=== PATIENT | female | born 1955 | race Caucasian/White ===

== ENCOUNTER 2019-05-20 12:04 | Inpatient (IN) ==
[2019-05-20] MEDS ORDERED: SODIUM CHLORIDE 0.9% 1,000 ML IV STA (14:42)
[2019-05-20 15:31] LABS: Basophils % 0.4 % (0.0-0.8); Eosinophils % 0.2 % (0.00-10.9); Hematocrit 42.3 VOL% (35.7-47.0); Hemoglobin 13.7 GM/DL (12.0-16.0); Immature Granulocytes % 0.4 %; Immature Granulocytes Absolute 0.04 #; Lymphocytes # 1.5 10*3/uL (1.4-4.0); Lymphocytes % 13.7 % (21.3-54.2); Mean Corpuscular HGB Conc 32.4 GM/DL (32-36); Mean Corpuscular Volume 91.2 FL (87-102); Mean Platelet Volume 9.9 FL (9.6-12.0); Monocytes % 6.7 % (1.7-12.7); Neutrophils % 78.6 % (38.7-73.9); Platelet Count 202 T/CUMM (130-400); Red Blood Count 4.64 MC/CUMM (3.8-5.5); Red Cell Distribution Width 14.7 % (9.3-17.3)
[2019-05-20 15:47] LABS: Barbiturates Screen,Urine Negative (Negative); Benzodiazepines Screen,Urine Positive (Negative); Cannabinoid Screen,Urine Negative (Negative); Opiate Screen,Urine Positive (Negative)
[2019-05-20 15:50] LABS: Albumin 3.9 G/DL (3.4-5.0); Bilirubin,Total 0.4 MG/DL (0.2-1.0); Calcium 9.7 MG/DL (8.5-10.1); Osmolality,Calculated 272.8 MOS/KG (273-304); Total Protein 7.9 G/DL (6.4-8.3)
[2019-05-20] MEDS ORDERED: POTASSIUM BICARB EFFERVESCENT 25 MEQ TABLET PO ONE (16:06)
[2019-05-20 16:12] LABS: Apearance,Urine CLOUDY (Clear); Bacteria,Urine Moderate /HPF (Few); Bilirubin,Urine Negative (Negative); Blood, Urine Negative (Negative); Glucose,Urine (UA) Negative (Negative); Hyaline Casts,Urine 139 /LPF (0-3); Ketones,Urine Negative (Negative); Mucus,Urine Many /LPF (Occasional); Nitrite,Urine Negative (Negative); Protein,Urine Negative; RBC,Urine 12 /HPF (0-4); Squamous Epithelial Cell,Urine Moderate /HPF (0-10); Urine Color Amber (Yellow); Urine Specific Gravity 1.017 (1.001-1.035); WBC,Urine 9 /HPF (0-6)
[2019-05-20] MEDS ORDERED: ONDANSETRON 4 MG/2 ML VIAL IV PRN (16:48)
[2019-05-20] MEDS: PROMETHAZINE 25 MG TABLET PO PRN (18:45)
[2019-05-20] MEDS: ENOXAPARIN 40 MG/0.4 ML SYRINGE SUBCUT SCH (19:42)
[2019-05-20] MEDS: cefTRIAXone 1,000 MG in SYRINGE 1 EACH IV SCH (19:43)
[2019-05-20] MEDS: SODIUM CHLORIDE 0.9% 1,000 ML IV SCH (20:27)
[2019-05-20] MEDS: MORPHINE ER 15 MG TABLET PO SCH (21:35)
[2019-05-20] MEDS: tiZANidine 4 MG TABLET PO SCH (21:35)
[2019-05-20] MEDS: traMADol 50 MG TABLET PO SCH (21:35)
[2019-05-20] MEDS: ZALEPLON 5 MG CAPSULE PO SCH (21:35)
[2019-05-21] MEDS ORDERED: NEBIVOLOL 5 MG TABLET PO SCH (09:00)
[2019-05-21] MEDS: LEVOTHYROXINE 88 MCG TABLET PO SCH (09:22)
[2019-05-21] MEDS: traMADol 50 MG TABLET PO SCH ×3 (09:23→21:29)
[2019-05-21] MEDS: tiZANidine 4 MG TABLET PO SCH ×2 (09:23→21:29)
[2019-05-21] MEDS: FLUoxetine 20 MG CAPSULE PO SCH (09:24)
[2019-05-21] MEDS: PANTOPRAZOLE 40 MG TABLET PO SCH (09:24)
[2019-05-21] MEDS: ATORVASTATIN 20 MG TABLET PO SCH (09:24)
[2019-05-21] MEDS: hydroCHLOROthiazide 25 MG TABLET PO SCH (09:25)
[2019-05-21 10:27] LABS: Albumin 2.9 G/DL (3.4-5.0); Bilirubin,Total 0.4 MG/DL (0.2-1.0); Calcium 8.2 MG/DL (8.5-10.1)
[2019-05-21] MEDS: MORPHINE ER 15 MG TABLET PO SCH ×2 (11:21→21:29)
[2019-05-21] MEDS ORDERED: NEBIVOLOL 5 MG TABLET PO ONE (13:40)
[2019-05-21] MEDS ORDERED: MAGNESIUM SULF RIDER 4 GM in PREMIX 1 EACH IV PRN (15:42)
[2019-05-21] MEDS: MAGNESIUM SULF RIDER 2 GM in PREMIX 1 EACH IV PRN (15:57)
[2019-05-21] MEDS: ENOXAPARIN 40 MG/0.4 ML SYRINGE SUBCUT SCH (16:00)
[2019-05-21] MEDS: cefTRIAXone 1,000 MG in SYRINGE 1 EACH IV SCH (18:35)
[2019-05-21] MEDS: SODIUM CHLORIDE 0.9% 1,000 ML IV SCH ×2 (19:20)
[2019-05-21] MEDS: ACETAMINOPHEN 325 MG TABLET PO PRN (19:44)
[2019-05-21] MEDS: diphenhydrAMINE CAP 25 MG CAPSULE PO PRN (19:44)
[2019-05-21] MEDS: ZALEPLON 5 MG CAPSULE PO SCH (21:29)
[2019-05-22] MEDS: LEVOTHYROXINE 88 MCG TABLET PO SCH (06:13)
[2019-05-22] MEDS ORDERED: NEBIVOLOL 5 MG TABLET PO SCH (09:00)
[2019-05-22 09:33] LABS: Basophils % 0.7 % (0.0-0.8); Eosinophils # 0.1 10*3/uL (0.0-0.87); Eosinophils % 2.6 % (0.00-10.9); Hematocrit 34.4 VOL% (35.7-47.0); Immature Granulocytes % 0.2 %; Immature Granulocytes Absolute 0.01 #; Lymphocytes # 1.4 10*3/uL (1.4-4.0); Lymphocytes % 31.8 % (21.3-54.2); Mean Corpuscular HGB Conc 31.1 GM/DL (32-36); Mean Corpuscular Volume 95.8 FL (87-102); Monocytes % 9.2 % (1.7-12.7); Neutrophils % 55.5 % (38.7-73.9); Red Cell Distribution Width 15.3 % (9.3-17.3)
[2019-05-22 09:35] LABS: White Blood Count 4.3 T/CUMM (4-12)
[2019-05-22 09:36] LABS: Hemoglobin 10.7 GM/DL (12.0-16.0); Platelet Count 148 T/CUMM (130-400); Red Blood Count 3.59 MC/CUMM (3.8-5.5)
[2019-05-22 09:44] LABS: Calcium 8.4 MG/DL (8.5-10.1); Osmolality,Calculated 274.4 MOS/KG (273-304)
[2019-05-22] MEDS: PROMETHAZINE 25 MG TABLET PO PRN (09:45)
[2019-05-22] MEDS: PANTOPRAZOLE 40 MG TABLET PO SCH (09:45)
[2019-05-22] MEDS: traMADol 50 MG TABLET PO SCH ×3 (09:45→20:22)
[2019-05-22] MEDS: ATORVASTATIN 20 MG TABLET PO SCH (09:45)
[2019-05-22] MEDS: diphenhydrAMINE CAP 25 MG CAPSULE PO PRN ×2 (09:45→20:22)
[2019-05-22] MEDS: FLUoxetine 20 MG CAPSULE PO SCH (09:46)
[2019-05-22] MEDS: hydroCHLOROthiazide 25 MG TABLET PO SCH (09:46)
[2019-05-22] MEDS: tiZANidine 4 MG TABLET PO SCH ×2 (09:46→20:26)
[2019-05-22] MEDS: MORPHINE ER 15 MG TABLET PO SCH ×3 (14:02→20:23)
[2019-05-22] MEDS: SODIUM CHLORIDE 0.9% 1,000 ML IV SCH (18:11)
[2019-05-22] MEDS: cefTRIAXone 1,000 MG in SYRINGE 1 EACH IV SCH (18:11)
[2019-05-22] MEDS: ENOXAPARIN 40 MG/0.4 ML SYRINGE SUBCUT SCH (18:56)
[2019-05-22] MEDS: ZALEPLON 5 MG CAPSULE PO SCH (20:22)
[2019-05-23] MEDS: PROMETHAZINE 25 MG TABLET PO PRN ×2 (04:18→20:26)
[2019-05-23] MEDS: ACETAMINOPHEN 325 MG TABLET PO PRN (04:18)
[2019-05-23 05:31] LABS: Basophils % 0.4 % (0.0-0.8); Eosinophils # 0.2 10*3/uL (0.0-0.87); Eosinophils % 2.9 % (0.00-10.9); Hematocrit 32.1 VOL% (35.7-47.0); Hemoglobin 10.2 GM/DL (12.0-16.0); Immature Granulocytes % 0.2 %; Immature Granulocytes Absolute 0.01 #; Lymphocytes # 2.3 10*3/uL (1.4-4.0); Lymphocytes % 45.2 % (21.3-54.2); Mean Corpuscular HGB Conc 31.8 GM/DL (32-36); Mean Corpuscular Volume 93.9 FL (87-102); Mean Platelet Volume 10.4 FL (9.6-12.0); Neutrophils % 43.3 % (38.7-73.9); Platelet Count 144 T/CUMM (130-400); Red Blood Count 3.42 MC/CUMM (3.8-5.5); White Blood Count 5.1 T/CUMM (4-12)
[2019-05-23 05:57] LABS: Calcium 7.9 MG/DL (8.5-10.1)
[2019-05-23] MEDS: LEVOTHYROXINE 88 MCG TABLET PO SCH (06:06)
[2019-05-23] MEDS: SODIUM CHLORIDE 0.9% 1,000 ML IV SCH ×2 (08:58→13:09)
[2019-05-23] MEDS ORDERED: NEBIVOLOL 5 MG TABLET PO SCH (09:00)
[2019-05-23] MEDS: FLUoxetine 20 MG CAPSULE PO SCH (09:14)
[2019-05-23] MEDS: hydroCHLOROthiazide 25 MG TABLET PO SCH (09:15)
[2019-05-23] MEDS: ATORVASTATIN 20 MG TABLET PO SCH (09:15)
[2019-05-23] MEDS: traMADol 50 MG TABLET PO SCH ×3 (09:15→20:26)
[2019-05-23] MEDS: MORPHINE ER 15 MG TABLET PO SCH ×2 (09:15→20:26)
[2019-05-23] MEDS: tiZANidine 4 MG TABLET PO SCH ×2 (09:15→20:26)
[2019-05-23] MEDS: PANTOPRAZOLE 40 MG TABLET PO SCH (09:15)
[2019-05-23] MEDS ORDERED: FLUoxetine 20 MG CAPSULE PO ONE (09:39)
[2019-05-23] MEDS: ENOXAPARIN 40 MG/0.4 ML SYRINGE SUBCUT SCH (16:45)
[2019-05-23] MEDS: ZALEPLON 5 MG CAPSULE PO SCH (20:28)
[2019-05-24 05:27] LABS: Basophils % 0.6 % (0.0-0.8); Eosinophils # 0.2 10*3/uL (0.0-0.87); Eosinophils % 3.2 % (0.00-10.9); Hematocrit 28.9 VOL% (35.7-47.0); Hemoglobin 9.3 GM/DL (12.0-16.0); Immature Granulocytes % 0.2 %; Immature Granulocytes Absolute 0.01 #; Lymphocytes # 1.9 10*3/uL (1.4-4.0); Lymphocytes % 38.6 % (21.3-54.2); Mean Corpuscular HGB Conc 32.2 GM/DL (32-36); Mean Corpuscular Volume 92.3 FL (87-102); Mean Platelet Volume 10.1 FL (9.6-12.0); Monocytes % 8.1 % (1.7-12.7); Neutrophils % 49.3 % (38.7-73.9); Platelet Count 152 T/CUMM (130-400); Red Blood Count 3.13 MC/CUMM (3.8-5.5); Red Cell Distribution Width 14.9 % (9.3-17.3)
[2019-05-24 05:58] LABS: Calcium 8.2 MG/DL (8.5-10.1); Osmolality,Calculated 277.3 MOS/KG (273-304)
[2019-05-24] MEDS: LEVOTHYROXINE 88 MCG TABLET PO SCH (06:38)
[2019-05-24] MEDS: PANTOPRAZOLE 40 MG TABLET PO SCH (09:33)
[2019-05-24] MEDS: FLUoxetine 20 MG CAPSULE PO SCH (09:33)
[2019-05-24] MEDS: tiZANidine 4 MG TABLET PO SCH ×2 (09:33→20:05)
[2019-05-24] MEDS: traMADol 50 MG TABLET PO SCH ×3 (09:33→20:05)
[2019-05-24] MEDS: MORPHINE ER 15 MG TABLET PO SCH ×2 (09:33→20:05)
[2019-05-24] MEDS: ATORVASTATIN 20 MG TABLET PO SCH (09:33)
[2019-05-24] MEDS: hydroCHLOROthiazide 25 MG TABLET PO SCH (09:38)
[2019-05-24 12:25] LABS: Phencyclidine Interpretation Negative.; Phencyclidine-by GC/MS Negative ng/mL (Cutoff: 10)
[2019-05-24] MEDS: ENOXAPARIN 40 MG/0.4 ML SYRINGE SUBCUT SCH ×2 (15:47→16:02)
[2019-05-24] MEDS: COENZYME Q10 100 MG CAPSULE PO SCH (17:34)
[2019-05-24] MEDS: ZALEPLON 5 MG CAPSULE PO SCH (20:05)
[2019-05-25] MEDS: PROMETHAZINE 25 MG TABLET PO PRN ×2 (05:44→16:12)
[2019-05-25] MEDS: LEVOTHYROXINE 88 MCG TABLET PO SCH (06:34)
[2019-05-25 06:51] LABS: Basophils % 0.7 % (0.0-0.8); Eosinophils # 0.1 10*3/uL (0.0-0.87); Hematocrit 33.9 VOL% (35.7-47.0); Hemoglobin 10.8 GM/DL (12.0-16.0); Immature Granulocytes % 0.2 %; Immature Granulocytes Absolute 0.01 #; Lymphocytes # 1.5 10*3/uL (1.4-4.0); Lymphocytes % 33.9 % (21.3-54.2); Mean Corpuscular HGB Conc 31.9 GM/DL (32-36); Mean Corpuscular Volume 92.4 FL (87-102); Mean Platelet Volume 9.4 FL (9.6-12.0); Monocytes % 7.3 % (1.7-12.7); Neutrophils % 54.9 % (38.7-73.9); Platelet Count 157 T/CUMM (130-400); Red Blood Count 3.67 MC/CUMM (3.8-5.5); Red Cell Distribution Width 15.1 % (9.3-17.3); White Blood Count 4.4 T/CUMM (4-12)
[2019-05-25 07:17] LABS: Calcium 8.3 MG/DL (8.5-10.1); Osmolality,Calculated 278.1 MOS/KG (273-304)
[2019-05-25] MEDS: MORPHINE ER 15 MG TABLET PO SCH ×2 (08:43→20:47)
[2019-05-25] MEDS: ATORVASTATIN 20 MG TABLET PO SCH (08:43)
[2019-05-25] MEDS: FLUoxetine 20 MG CAPSULE PO SCH (08:43)
[2019-05-25] MEDS: hydroCHLOROthiazide 25 MG TABLET PO SCH (08:44)
[2019-05-25] MEDS: PANTOPRAZOLE 40 MG TABLET PO SCH (08:44)
[2019-05-25] MEDS: tiZANidine 4 MG TABLET PO SCH ×2 (08:44→20:46)
[2019-05-25] MEDS: traMADol 50 MG TABLET PO SCH ×3 (08:44→20:46)
[2019-05-25] MEDS: COENZYME Q10 100 MG CAPSULE PO SCH (08:46)
[2019-05-25] MEDS: MAGNESIUM SULF RIDER 2 GM in PREMIX 1 EACH IV PRN (09:39)
[2019-05-25] MEDS: POTASSIUM CHLORIDE 20 MEQ TABLET PO PRN ×2 (09:40→12:30)
[2019-05-25] MEDS ORDERED: ERGOCALCIFEROL 50,000 UNIT CAPSULE PO SCH (10:30)
[2019-05-25] MEDS: ENOXAPARIN 40 MG/0.4 ML SYRINGE SUBCUT SCH (16:13)
[2019-05-25] MEDS: CYANOCOBALAMIN 1000 MCG/1 ML VIAL IM SCH (16:14)
[2019-05-25] MEDS: ZALEPLON 5 MG CAPSULE PO SCH (20:46)
[2019-05-26 06:17] LABS: Basophils % 0.6 % (0.0-0.8); Eosinophils # 0.2 10*3/uL (0.0-0.87); Eosinophils % 3.4 % (0.00-10.9); Hematocrit 31.8 VOL% (35.7-47.0); Hemoglobin 10.3 GM/DL (12.0-16.0); Immature Granulocytes % 0.2 %; Immature Granulocytes Absolute 0.01 #; Lymphocytes # 1.7 10*3/uL (1.4-4.0); Lymphocytes % 36.2 % (21.3-54.2); Mean Corpuscular HGB Conc 32.4 GM/DL (32-36); Mean Corpuscular Volume 91.6 FL (87-102); Mean Platelet Volume 9.8 FL (9.6-12.0); Monocytes % 10.4 % (1.7-12.7); Neutrophils % 49.2 % (38.7-73.9); Platelet Count 160 T/CUMM (130-400); Red Blood Count 3.47 MC/CUMM (3.8-5.5); White Blood Count 4.7 T/CUMM (4-12)
[2019-05-26] MEDS: LEVOTHYROXINE 88 MCG TABLET PO SCH (06:25)
[2019-05-26] MEDS: PROMETHAZINE 25 MG TABLET PO PRN (06:25)
[2019-05-26 06:43] LABS: Calcium 8.5 MG/DL (8.5-10.1); Osmolality,Calculated 274.4 MOS/KG (273-304)
[2019-05-26] MEDS: FLUoxetine 20 MG CAPSULE PO SCH (09:13)
[2019-05-26] MEDS: COENZYME Q10 100 MG CAPSULE PO SCH (09:13)
[2019-05-26] MEDS: PANTOPRAZOLE 40 MG TABLET PO SCH (09:13)
[2019-05-26] MEDS: MORPHINE ER 15 MG TABLET PO SCH (09:14)
[2019-05-26] MEDS: POTASSIUM CHLORIDE 20 MEQ TABLET PO PRN ×2 (09:16→11:14)
[2019-05-26] MEDS: traMADol 50 MG TABLET PO SCH (09:16)
[2019-05-26] MEDS: ATORVASTATIN 20 MG TABLET PO SCH (09:16)
[2019-05-26] MEDS: hydroCHLOROthiazide 25 MG TABLET PO SCH (09:17)
[2019-05-26] MEDS: CYANOCOBALAMIN 1000 MCG/1 ML VIAL IM SCH (09:17)
[2019-05-26] MEDS: tiZANidine 4 MG TABLET PO SCH (09:17)
[2019-05-26 12:30] VITALS: BP 133/71
== END 2019-05-26 12:52 | disposition home or self-care (01) | DRG 312 ==
LOC: N.SDSINP 12:04 → N.EDINP 12:04 → N.ED 12:04 → N.2W 17:30 → SUATTDRO 05-22 13:24 → N.TELEN 05-22 17:20
PROVIDERS: ADMIT Internal Medicine; ATTEND Internal Medicine